=== PATIENT | male | born 1980 | race Caucasian/White ===

== ENCOUNTER 2022-02-28 19:45 | Emergency (ER) | payer OTHER ==
[~2022-02-28] VITALS: Ht 193.1 cm; Wt 150.2 kg
[2022-02-28 19:54] VITALS: BP 154/115
--- NOTE | 2022-02-28 20:00 | ED Lower Extremity ---
General Stated Complaint: KNEE PAIN Source: patient, family () Exam Limitations: no limitations History of Present Illness Date Seen by Provider: Feb 28, 2022 Time Seen by Provider: 19:55 Initial Comments Patient is a 41-year-old male who presents to the emergency department with a chief complaint of right knee pain. Patient states that he was squatting about 500 pounds approximately a week ago, as he was standing up he twisted slightly to the right putting more weight on his right knee. He had onset of posterior knee pain. He states that pain has persisted over the course of the last week and over the last 24 hours he has developed anterior knee pain. Denies any numbness tingling or weakness in the leg. He states he has pain when he goes from sitting to a standing position. No loss of function. He thinks he did have a "muscle tear" from a couple of weeks prior to that as he has had some significant bruising in the posterior thigh on the right leg as well. He did just drive home from [place], family member was concerned about a possible blood clot in the leg. He has no complaints of chest pain, shortness of breath, lightheadedness or dizziness. His states she gave him some naproxen this evening just prior to coming in. He has put a little heat on the knee. Has never had an injury to his knees before never had an orthopedic visit related to his knees before. All other review of systems reviewed and negative except as stated Onset: last week Severity: moderate Pain/Injury Location: right knee Method of Injury: other (squatting 500# weight) Modifying Factors: Improves With Immobilization; Worse With Movement Allergies and Home Medications Patient Home Medication List Home Medication List Reviewed: Yes Review of Systems Constitutional: see HPI EENTM: no symptoms reported Respiratory: no symptoms reported Cardiovascular: no symptoms reported Gastrointestinal: no symptoms reported Musculoskeletal: joint pain (right knee) Skin: no symptoms reported Psychiatric/Neurological: No Symptoms Reported All Other Systems Reviewed Negative Unless Noted: Yes Physical Exam Vital Signs Capillary Refill : Height, Weight, BMI Height: '" Weight: lbs. oz. kg; BMI Method: General Appearance: WD/WN, no apparent distress Cardiovascular: regular rate, rhythm Respiratory: no respiratory distress, no accessory muscle use Hips: bilateral hip normal inspection, bilateral hip normal range of motion, bilateral hip no evidence of injury Legs: bilateral leg non-tender, bilateral leg normal inspection, bilateral leg normal range of motion, bilateral leg no evidence of injury Knees: right knee joint effusion (mild), right knee pain (slight tenderness to palpation over lateral joint line), right knee swelling, right knee other (Patient has slight crepitance with range of motion over the patella. Negative Tobias, to the best of my ability. Negative anterior drawer. Tenderness along the lateral joint line. Effusion is not significant. No overlying erythema or warmth. Popliteal fossa is without masses, no palpable cords in the right calf. No swelling in the right lower extremity. Negative Homans. Distal pulses are 2+.) Ankles: bilateral ankle non-tender, bilateral ankle normal inspection, bilateral ankle normal range of motion, bilateral ankle no evidence of injury Feet: bilateral foot non-tender, bilateral foot normal inspection, bilateral foot normal range of motion, bilateral foot no evidence of injury Neurologic/Tendon: normal sensation, normal motor functions, normal tendon functions Neurologic/Psychiatric: alert, normal mood/affect, oriented x 3 Skin: normal color, warm/dry Progress/Results/Core Measures Progress Progress Note : Time: 20:12 Progress Note Discussed further evaluation, work-up and management of right knee injury. I recommended follow-up with orthopedic surgery. He has evidence of a slight effusion over the right knee with good range of motion and strength. No instab ility in the right knee joint is appreciated. Without an acute traumatic injury I do not believe that x-rays are warranted at this time. Orthopedics will want to get their own x-rays in clinic either way. Distal neurovascularly intact to the right lower extremity. No evidence of DVT clinically. Patient will be referred to Dr. Anderson. He likely needs an MRI to further delineate pathology in the knee. I recommended not doing any further heavy lifting until he has follow-up with orthopedics and to continue the naproxen and add ice 3-4 times daily. Patient is comfortable with this plan of care. All questions are sought and answered Departure Impression Primary Impression: Internal derangement of right knee Disposition: 01 HOME, SELF-CARE Condition: Stable Departure-Patient Inst. Decision time for Depature: 20:14 Referrals: NO,LOCAL PHYSICIAN (PCP) Primary Care Physician DAREN ANDERSON MD Patient Instructions: Internal Derangement of the Knee Add. Discharge Instructions: Please avoid heavy lifting/squatting until you follow-up with orthopedics. Take the naproxen twice daily with food. You should be 500 mg tablets and will help with pain and inflammation. This can also be obtained over the counter as Aleve (2 pills at a time) twice daily. Ice packs to the knee 3-4 times daily for 20 minutes at a time over the next 2 to 3 days. If you feel like the knee is "locking up" or "giving way" or the knee becomes more swollen, hot and red please come back to the emergency department for reevaluation. I have given you contact information for the orthopedic surgeon on-call, Dr. Anderson. Please call his office on Thursday for a follow-up appointment to further evaluate the knee. Copy Copies To 1: DAREN ANDERSON MD, KATHRYN M MD Feb 28, 2022 20:00
[2022-02-28] MEDS ORDERED: VNL75T (20:01)
[2022-02-28] MEDS ORDERED: ALBU6.7H8 (20:01)
[2022-02-28] MEDS ORDERED: DISU250T8 (20:01)
[2022-02-28] MEDS ORDERED: HYDR-3781 (20:01)
[2022-02-28] MEDS ORDERED: TRAZ-227 (20:01)
[2022-02-28] MEDS ORDERED: ALPR0.5T7 (20:01)
[2022-02-28] MEDS ORDERED: GABA-490 (20:01)
[2022-02-28] MEDS ORDERED: METO50TA15 (20:01)
== END 2022-02-28 20:19 | disposition home or self-care (01) ==
LOC: EDUNIT# 19:45 → ER 19:50
DX: M23.91 Unspecified internal derangement of right knee (principal)
CPT/HCPCS: 99281